=== PATIENT | male | born 1970 | race Caucasian/White ===

== ENCOUNTER 2022-01-09 17:03 | Emergency (ER) | payer BC, OTHER ==
[2022-01-09 17:12] VITALS: BMI 28.7
[2022-01-09] MEDS ORDERED: KETOROLAC TROMETHAMINE 30 MG/1 ML VIAL IM ONE (17:24)
[2022-01-09] MEDS ORDERED: HYDROmorphone HCL CARPU-JECT 1 MG/1 ML DISP.SYRIN IM ONE (17:25)
[2022-01-09] MEDS ORDERED: KETOROLAC TROMETHAMINE 30 MG/1 ML VIAL ONE (17:26)
[2022-01-09] MEDS ORDERED: HYDROmorphone HCL/PF 1 MG/ML VIAL ONE ×2 (17:26→18:50)
[2022-01-09 18:31] LABS: HEMATOCRIT 47.6 % (35.4-49); HEMOGLOBIN 16.2 G/dL (11.7-16.9); MCH 32.5 pg (25.7-33.7); MCHC 34.1 g/dl (32.0-35.9); MEAN CELL VOLUME 95.3 fl (80-96); MEAN PLT VOLUME 9.2 fl (7.5-11.1); PLATELET COUNT 160.4 10^3/uL (134-434); RBC 4.99 10^6/uL (4.00-5.60); RDW 13.2 % (11.9-15.9); WHITE BLOOD COUNT 13.2 10^3/uL (4.0-10.8)
[2022-01-09] MEDS ORDERED: HYDROmorphone HCL CARPU-JECT 1 MG/1 ML DISP.SYRIN IVPUSH ONE (18:40)
[2022-01-09] MEDS ORDERED: LIDOCAINE 1%/EPI 1:100000 (20 ML MULTI DOSE VIAL) INF ONE (18:41)
[2022-01-09 18:43] LABS: INR 1.04 (0.83-1.09)
[2022-01-09] MEDS ORDERED: LIDOCAINE HCL/EPINEPHRINE/PF 20 ML VIAL ONE ×2 (18:43→18:55)
[2022-01-09 18:46] LABS: CALCIUM 9.4 mg/dl (8.5-10); CREATININE 1.1 mg/dl (0.55-1.3)
[2022-01-09 20:53] VITALS: BP 132/89; PULSE 71; RESP 18
[2022-01-09 20:55] VITALS: TEMP 98
== END 2022-01-09 20:45 | disposition short-term general hospital (02) ==
LOC: FER 17:03
PROC: 0W9930Z Drainage of Right Pleural Cavity with Drainage Device, Percutaneous Approach (ICD-10-PCS; principal; 2022-01-09)
PROC: 3E033GC Introduction of Other Therapeutic Substance into Peripheral Vein, Percutaneous Approach (ICD-10-PCS; 2022-01-09)
PROC: 3E023GC Introduction of Other Therapeutic Substance into Muscle, Percutaneous Approach (ICD-10-PCS; 2022-01-09)
DX: S27.0XXA Traumatic pneumothorax, initial encounter (principal); V18.0XXA Pedal cycle driver injured in noncollision transport accident in nontraffic accident, initial encounter
CPT/HCPCS: 36415; 71045-TC-FY; 71046-TC-FY; 72125-TC; 72128-TC; 73200-TC-RT; 80048; 85027; 85610; 85730; 86850; 86900; 86901; 99285-25; C9803-CS; U0003; U0005

== ENCOUNTER 2022-06-27 08:08 | Day surgery (SDC) | payer OTHER ==
[2022-06-24 11:16] VITALS: BMI 27.8
[2022-06-27] MEDS ORDERED: KETOROLAC TROMETHAMINE 30 MG/1 ML VIAL ONE (10:06)
[2022-06-27] MEDS ORDERED: DEXAMETHASONE SOD PHOSPHATE 4 MG/1 ML VIAL ONE (10:06)
[2022-06-27] MEDS ORDERED: ceFAZolin SODIUM 1 GM VIAL ONE (10:06)
[2022-06-27] MEDS ORDERED: ONDANSETRON 4 MG/2 ML VIAL ONE (10:06)
[2022-06-27] MEDS ORDERED: LIDOCAINE HCL/PF 2% SDV 5ML VIAL ONE (10:06)
[2022-06-27] MEDS ORDERED: PROPOFOL 20 ML ONE (10:07)
[2022-06-27] MEDS ORDERED: MIDAZOLAM HCL 2 MG/2 ML SINGLE DOSE VIAL ONE (10:07)
[2022-06-27] MEDS ORDERED: PHENYLEPHRINE HCL 10 MG/1 ML SINGLE DOSE VIAL ONE (10:25)
[2022-06-27] MEDS ORDERED: BUPIVACAINE HCL/PF 2.5 MG/ML - 30 ML VIAL IJ ONE (10:59)
[2022-06-27] MEDS ORDERED: ONDANSETRON 4 MG/2 ML VIAL IVPUSH PRN (11:18)
[2022-06-27] MEDS ORDERED: oxyCODONE HCL 5 MG TABLET PO PRN (11:18)
[2022-06-27] MEDS ORDERED: ACETAMINOPHEN INJECTION 100 ML IVPB ONE (11:19)
[2022-06-27] MEDS ORDERED: LACTATED RINGERS SOLUTION 1,000 ML IV SCH (11:30)
[2022-06-27] MEDS ORDERED: HYDROmorphone HCL/PF 1 MG/ML VIAL ONE (11:49)
[2022-06-27 12:27] VITALS: TEMP 97.8
[2022-06-27 13:05] VITALS: RESP 18
[2022-06-27 13:31] VITALS: BP 141/95; PULSE 69
== END 2022-06-27 13:30 | disposition home or self-care (01) ==
LOC: FASU 08:08
PROVIDERS: ATTEND Orthopaedic Surgery
PROC: 0SBC4ZZ Excision of Right Knee Joint, Percutaneous Endoscopic Approach (ICD-10-PCS; 2022-06-27)
PROC: 0SBC4ZZ Excision of Right Knee Joint, Percutaneous Endoscopic Approach (ICD-10-PCS; principal; 2022-06-27 11:44)
DX: S83.241A Other tear of medial meniscus, current injury, right knee, initial encounter (principal); S83.281A Other tear of lateral meniscus, current injury, right knee, initial encounter; S83.8X1A Sprain of other specified parts of right knee, initial encounter; M65.861 Other synovitis and tenosynovitis, right lower leg; X58.XXXA Exposure to other specified factors, initial encounter; Y93.9 Activity, unspecified; Y92.9 Unspecified place or not applicable
CPT/HCPCS: 94760